=== PATIENT | male | born 1935 ===

== ENCOUNTER 2018-12-02 10:37 | Inpatient (IN) | payer MEDICARE, OTHER ==
[~2018-12-02] VITALS: Ht 182.9 cm; Wt 90.2 kg
[~2018-12-02 10:37] MED LIST: HYDCHL12.5 PO; IBUP100S; Norco 5-325 Ta1 EACH PO; TAMS.4ER PO
[2018-12-02] MEDS ORDERED: FURO40 PO (10:57)
[2018-12-02] MEDS ORDERED: POTCHL10ER PO (10:57)
[2018-12-02 11:14] LABS: BASOPHILS ABSOLUTE AUTO 0.04 K/mm3 (0.00-0.23); BASOPHILS PERCENT AUTO 1 % (0-2); EOSINOPHILS PERCENT AUTO 5 % (0-6); Hematocrit 37.2 % (37.0-53.0); Hemoglobin 13.2 g/dL (13.5-17.5); IMMATURE GRAN ABSOLUTE AUTO 0.03 K/mm3 (0.00-0.10); IMMATURE GRAN PERCENT AUTO 1 % (0-1); LYMPHOCYTES ABSOLUTE AUTO 0.36 K/mm3 (0.84-5.20); LYMPHOCYTES PERCENT AUTO 8 % (21-46); MONOCYTES ABSOLUTE AUTO 0.55 K/mm3 (0.16-1.47); MONOCYTES PERCENT AUTO 13 % (4-13); Mean Corpuscular HGB 35.6 pg (26.0-34.0); Mean Corpuscular HGB Conc 35.5 g/dL (31.5-36.5); Mean Corpuscular Volume 100 fL (80-100); Mean Platelet Volume 10.4 fL (9.1-12.4); NEUTROPHILS ABSOLUTE AUTO 3.13 K/mm3 (1.96-9.15); NEUTROPHILS PERCENT AUTO 73 % (41-73); Platelet Count 170 K/mm3 (150-400); RDW Coefficient Variation 16.5 % (11.7-14.2); RDW Standard Deviation 60.9 fL (35.1-46.3); Red Blood Cell Count 3.71 M/mm3 (4.30-5.90); White Blood Cell Count 4.31 K/mm3 (4.00-11.30)
[2018-12-02 11:39] LABS: International Normalized Ratio 1.27; Prothrombin Time Results 13.2 Sec (9.7-11.5)
[2018-12-02 11:45] LABS: Alanine Aminotransfer (ALT/SGP 166 U/L (12-78); Albumin, Blood 2.6 g/dL (3.4-5.0); Albumin/Globulin Ratio 0.9 (0.8-1.8); Alk Phos 558 U/L (50-136); Anion Gap 9 mmol/L (6-16); Aspartate Aminotrans (AST/SGOT 286 U/L (12-37); Blood Urea Nitrogen 11 mg/dL (8-24); Bun/Creatinine Ratio 16.2 (12.0-20.0); CO2, Blood 29 mmol/L (21-32); Calcium, Blood 8.4 mg/dL (8.5-10.1); Chloride, Blood 99 mmol/L (98-108); Creatinine, Blood 0.68 mg/dL (0.60-1.20); Globulin, Blood 2.8 g/dL (2.2-4.0); Glomerular Filtration Rate >60 (60-); Glucose, Blood 136 mg/dL (70-99); Potassium, Blood 2.9 mmol/L (3.5-5.5); Sodium, Blood 137 mmol/L (136-145); Total Protein, Blood 5.4 g/dL (6.4-8.2)
[2018-12-02 12:01] LABS: Bilirubin, Total 25.5 mg/dL (0.1-1.0)
--- NOTE | 2018-12-02 15:30 | NUR ---
Initial palliative care consult: Sudheer is efren 83 year old with a history of prostate problems and leg edema. He reports that he has been healthy all his life until the last couple of years. He is accompanied by his and daughter today. He lives with his of 66 years in [place]. She is needing to have a hip replaced. Their daughter lives in [place] and they have a son Mario in [place]. Sudheer states he saw his PCP about a month ago and had lab work done. He reports he was supposed to go see a doctor at the cancer center, however he never rec'd a call for an appointment. He reports that he has had abd pain for the past several months. He reports a change in BMs (up to 4/day) which is unusal for him. He reports his BMs are restaurant manager in [place]. He is very jaundiced and c/o itching. He has swelling in bilat lower extremities. He reports a 40 pound wt loss over the past year and he also reports a poor appetite recently. He states he knew something was wrong and was putting off coming into the hospital for fear of bad news. He reports dark colored urine. He c/o being extrememly weak which has been rapidly progressing recently. During the initial visit, Dr. Morse returned to give CT results which are highly suspicious for a pancreatic tumor which is blocking ducts. Dr. Morse told pt and family that he had contacted the radiologist and Dr. Ferris who pt was referred to by his PCP. He also stated he would speak with Dr. Burrows about a possible drain placement. Pt and family are overwhelmed by news of his tumor. Pt stated he knew something was wrong, his dtr, Jennifer, is very tearful and upset. Asked pt to think about what he would like to do once he has spoken to all the doctors and has options for care. Discussed possibilty of treatment vs. hospice care. Pt stated he was leaning towards comfort care which upset his dtr. She said "No way will hospice be involved." She reports her grandparents under hospice care. "They were not given IV fluids and they starved to ." Attempted to calm her fears and gently explained the goal of hospice care is to improve qualify of life when a cure isn't an option. Discussed pancreatic cancer and how that defers from breast cancer (pt's dtr Jennifer is a breast cancer survivor.) Sudheer stated if he knew he would be cured of the cancer he would consider doing treatment. He also stated that he knew he could still of cancer even with treatment. He is very much interested in managing his symptoms and relieving his pain and itching. Much emotional support given to pt and family. Will allow pt and family some time as they are reacting to the news of a new cancer diagnosis. Explained to them that the reactions they are having of fear, denial, anger are all normal. Sudheer states he wants to talk to his family and then they will decide what to do for a plan going forward. Explained to Sudheer and family the goal for PC. PC will remain available for symptom management and helping pt and family to develop a plan of care. Did not address home needs or code status at this time as pt and family are beginning to adsorb this new diagnosis.
--- NOTE | 2018-12-02 19:00 | NUR ---
JUST ARRIVED TO RM 362 FROM ER. ORIENTED TO ROOM.
--- NOTE | 2018-12-02 20:05 | NUR ---
1930 REPORT RECEIVED. PT NOT IN ROOM AND OFF UNIT WITH FAMILY PER REPORT FROM OFF GOING RN.
--- NOTE | 2018-12-03 04:05 | NUR ---
SHIFT SUMMARY: 83 Y/O MALE RESTED COMFORTABLY ALL EVENING IN BED. PT C/O BACK PAIN AND MEDICATED NORCO X 1 WITH RELIEF FELT. PT HAS PAST HISTORY CHRONIC BACK DISCOMFORT. PT ALERT AND ORIENTED X 3, ABLE TO FOLLOW ALL SIMPLE VERBAL COMMANDS. PTS TELEMETRY REFLECTS A-FIB WITH HEART RATE 76. PTS AND DAUGHTER AT SIDE BEGINNING OF SHIFT. PT DENIES ITCHING. PT DENIES NAUSEA. PTS BED ALARM APPLIED, BED LOW POSITION, CALL LIGHT AT SIDE.
[2018-12-03 05:10] LABS: BASOPHILS ABSOLUTE AUTO 0.05 K/mm3 (0.00-0.23); BASOPHILS PERCENT AUTO 1 % (0-2); EOSINOPHILS ABSOLUTE AUTO 0.29 K/mm3 (0.00-0.68); EOSINOPHILS PERCENT AUTO 6 % (0-6); Hematocrit 36.1 % (37.0-53.0); Hemoglobin 12.7 g/dL (13.5-17.5); IMMATURE GRAN ABSOLUTE AUTO 0.03 K/mm3 (0.00-0.10); IMMATURE GRAN PERCENT AUTO 1 % (0-1); LYMPHOCYTES ABSOLUTE AUTO 0.56 K/mm3 (0.84-5.20); LYMPHOCYTES PERCENT AUTO 12 % (21-46); MONOCYTES PERCENT AUTO 15 % (4-13); Mean Corpuscular HGB 35.1 pg (26.0-34.0); Mean Corpuscular HGB Conc 35.2 g/dL (31.5-36.5); Mean Corpuscular Volume 100 fL (80-100); Mean Platelet Volume 10.3 fL (9.1-12.4); NEUTROPHILS ABSOLUTE AUTO 3.07 K/mm3 (1.96-9.15); NEUTROPHILS PERCENT AUTO 65 % (41-73); Platelet Count 195 K/mm3 (150-400); RDW Coefficient Variation 16.8 % (11.7-14.2); RDW Standard Deviation 61.5 fL (35.1-46.3); Red Blood Cell Count 3.62 M/mm3 (4.30-5.90)
[2018-12-03 05:24] LABS: International Normalized Ratio 1.23; Prothrombin Time Results 12.8 Sec (9.7-11.5)
[2018-12-03 05:42] LABS: Alanine Aminotransfer (ALT/SGP 199 U/L (12-78); Albumin, Blood 2.8 g/dL (3.4-5.0); Alk Phos 597 U/L (50-136); Anion Gap 7 mmol/L (6-16); Aspartate Aminotrans (AST/SGOT 373 U/L (12-37); Blood Urea Nitrogen 11 mg/dL (8-24); Bun/Creatinine Ratio 14.8 (12.0-20.0); CO2, Blood 31 mmol/L (21-32); Calcium, Blood 8.4 mg/dL (8.5-10.1); Chloride, Blood 97 mmol/L (98-108); Creatinine, Blood 0.74 mg/dL (0.60-1.20); Globulin, Blood 2.9 g/dL (2.2-4.0); Glomerular Filtration Rate >60 (60-); Glucose, Blood 108 mg/dL (70-99); Potassium, Blood 3.1 mmol/L (3.5-5.5); Sodium, Blood 135 mmol/L (136-145); Total Protein, Blood 5.7 g/dL (6.4-8.2)
[2018-12-03 05:53] LABS: Bilirubin, Total 27.1 mg/dL (0.1-1.0)
--- NOTE | 2018-12-03 11:30 | NUR ---
Pal care visit note: Introduced myself to pt. He is very jaundiced, alert and oriented and receptive to visit. I explained to him that I was following up after his Pal Care visit in the ER yesterday with another PC RN. He reports his pain was an 8-9/10 yesterday in the ER. He states for two years he has taken tylonol with hydrocodone tid for low back pain. He believes he was given a pain pill just a little bid ago and reports his pain at a 7-8/10 at this time. Discussed with pt and RN that if pain was not to pt's stated tolerable level in the next 30-40 minutes, I recommended use of IV fentanyl as ordered per eMAR. Pt also reports nausea and stomach/abd cramping with eating. He is experiencing the urge to void or have a BM almost all the time due to pressure from fluid in his abdomen. He feels "tight all over". He is eating only small amounts. I reviewed his wishes re: code status and pt confirmed he does not want to have CPR or intubation and wants to be allowed to naturally with comfort measures taken if he is in respiratory failure or has a cardiac event. He is in favor of having a biliary duct stent placed if it is "all inside" to drain but he does not want an exterior drain or tube of any sort. He's discussed this with his drs and that his pancreatic mass is "inoperable". He has asked "how much time do I have?" and been told by drs, "that is an unknown". Pt appears calm and appropriately somber. He states a number of times, "I just want to be comfortable for whatever time I have left". He verbalizes understanding of conversations & the information re: his diagnosis and prognosis provided to him by his drs yesterday. "I've kicked the can down the road as far as I can kick it.". He reports knowing he was gravely ill due to continued weight loss and abdominal discomfort for some time. He changed the subject to his and the hip replacement she needs. We spent some time reminiscing about his life, meeting his nearly 68 years ago, for 66 years since the summer between her pete and senior year of high school. They have lived in [place] and in the same home for many decades. They have a daughter in [place] and a son in the [place] area. I case conferenced with pt's RN and Tracy from [facility] re: my visit and planned to visit again later today to assess for comfort again and meet with pt's family when they visit if desired. Pt states he would like me to return today.
--- NOTE | 2018-12-03 16:04 | NUR ---
Patient is lying in bed and alert when I enter the room. Patient admits to struggling with his recent diagnosis. Patient states that he is the dumbest 83 year old about tenriism but he never gave it much thought until now. As I ask patient questions the family jumped in the conversation a few times and when they did it appeared to this abstract writer that this irritated the patient. I answered the patient's questions and attempted to bring a degree of peace to the patient about the afterlife. Patient asked me to come back to continue the conversation tomorrow. I told him I would make every effort to make that happen. I continue to be available to patient and family.
--- NOTE | 2018-12-03 18:50 | NUR ---
SHIFT SUMMARY PANCREATIC CA. OX3 SWINOMISH, UP TO BATHROOM 1ASSISTMorris WHEELER. NPO AFTER MIDNIGHT FOR PALLIATIVE PANCREATIC STENT PLACEMENT IN A.M. CONSULT COMPLETED THIS P.M. WITH DR. SURESH. C/O ABDOMINAL AND LOWER BACK PAIN ORDERED MEDS EFFECTIVE. AWAITING HOSPICE CONSULT.
--- NOTE | 2018-12-04 01:44 | NUR ---
PT C/O ZERO RELIEF FROM VISTARIL 25MG PO GIVEN AT 0015 FOR CHRONIC ITCHING TO ENTIRE BODY. . DR ALFRED ADVISED WITH ORDERS BENADRYL 25MG IVP X1.
[2018-12-04 05:01] LABS: BASOPHILS ABSOLUTE AUTO 0.04 K/mm3 (0.00-0.23); BASOPHILS PERCENT AUTO 1 % (0-2); EOSINOPHILS ABSOLUTE AUTO 0.42 K/mm3 (0.00-0.68); EOSINOPHILS PERCENT AUTO 9 % (0-6); Hematocrit 33.3 % (37.0-53.0); Hemoglobin 11.7 g/dL (13.5-17.5); IMMATURE GRAN ABSOLUTE AUTO 0.04 K/mm3 (0.00-0.10); IMMATURE GRAN PERCENT AUTO 1 % (0-1); LYMPHOCYTES ABSOLUTE AUTO 0.49 K/mm3 (0.84-5.20); LYMPHOCYTES PERCENT AUTO 11 % (21-46); MONOCYTES ABSOLUTE AUTO 0.73 K/mm3 (0.16-1.47); MONOCYTES PERCENT AUTO 16 % (4-13); Mean Corpuscular HGB 34.7 pg (26.0-34.0); Mean Corpuscular HGB Conc 35.1 g/dL (31.5-36.5); Mean Corpuscular Volume 99 fL (80-100); Mean Platelet Volume 10.3 fL (9.1-12.4); NEUTROPHILS ABSOLUTE AUTO 2.83 K/mm3 (1.96-9.15); NEUTROPHILS PERCENT AUTO 62 % (41-73); Platelet Count 168 K/mm3 (150-400); RDW Coefficient Variation 16.8 % (11.7-14.2); RDW Standard Deviation 60.7 fL (35.1-46.3); Red Blood Cell Count 3.37 M/mm3 (4.30-5.90); White Blood Cell Count 4.55 K/mm3 (4.00-11.30)
[2018-12-04 05:16] LABS: International Normalized Ratio 1.29; Prothrombin Time Results 13.4 Sec (9.7-11.5)
[2018-12-04 05:33] LABS: Alanine Aminotransfer (ALT/SGP 173 U/L (12-78); Albumin, Blood 2.4 g/dL (3.4-5.0); Alk Phos 523 U/L (50-136); Anion Gap 9 mmol/L (6-16); Aspartate Aminotrans (AST/SGOT 288 U/L (12-37); Blood Urea Nitrogen 15 mg/dL (8-24); Bun/Creatinine Ratio 18.7 (12.0-20.0); CO2, Blood 30 mmol/L (21-32); Calcium, Blood 7.9 mg/dL (8.5-10.1); Chloride, Blood 97 mmol/L (98-108); Globulin, Blood 2.3 g/dL (2.2-4.0); Glomerular Filtration Rate >60 (60-); Glucose, Blood 95 mg/dL (70-99); Potassium, Blood 3.2 mmol/L (3.5-5.5); Sodium, Blood 136 mmol/L (136-145); Total Protein, Blood 4.7 g/dL (6.4-8.2)
[2018-12-04 05:55] LABS: Bilirubin, Total 25.4 mg/dL (0.1-1.0)
--- NOTE | 2018-12-04 08:07 | NUR ---
SHIFT SUMMARY: 83 Y/O MALE HAD RESTLESS NIGHT WITH ONGOING PAIN AND ITCHING. THIS NURSE CONTACTED MD STOCK PREPARER AND PATIENT WAS GIVEN BENADRYL 25MG IVP AT 0210 WHICH RESOLVED ITCHING. PT NPO AFTER MIDNIGHT FOR POSSIBLE BILE DUCT STENT PLACEMENT. DR SURESH WAS AT BEDSIDE AT BEGINNING OF SHIFT AND EXPLAINED PROGNOSIS AND RECOMMENDED HOSPICE WITH PATIENTS , SON AND DAUGHTER AT SIDE. PTS SKIN VERY JAUNDICED. PTS VERY COOPERATIVE AND POLITE. PTS BED ALARM APPLIED, BED LOW POSITION, CALL LIGHT AT SIDE.
--- NOTE | 2018-12-04 15:55 | NUR ---
Met with family for plan of care. Review of stress. pt mother is struggling to let people in her home. He son lives there who is in recovery. She feels her house is old and cluttered and her son lives with them she is embarrassed. Her other children are trying to set things up for both of them pt understands his very limited time and their mother is failing also. reviewed need to hav a will and poa. theraputic time with patient daughter who just lost her exhusband and now is facing her fathers passing she is struggling. review grief and care startegies.
--- NOTE | 2018-12-04 19:48 | NUR ---
SHIFT SUMMARY: PT A&O; CALM AND COOPERATIVE WITH CARE. MEDICATED FOR PAIN PER EMAR. SURGICAL PROCEDURE TODAY; INTERNAL & EXTERNAL BILIARY DRAINS PLACED (DR GUEVARA); DRAIN BAG IN PLACE-BLOODY DRAINAGE; MEDICATED FOR PAIN & NAUSEA POST-OP. REPORT GIVEN TO ONCOMING RN.
--- NOTE | 2018-12-05 05:00 | NUR ---
SHIFT SUMMARY: 83 Y/O MALE RESTED COMFORTABLY ALL SHIFT WITH NO C/O PAIN, NAUSEA OR ITCHING. PTS DRAIN CONTINUOUS HAD SEROSANGUINUOUS DRAINAGE NOTED (SITE WELL APPROXIMATED WITH DRESSING DRY AND INTACT). PT IS ALERT AND ORIENTED X3, ABLE TO FOLLOW ALL SIMPLE VERBAL COMMANDS. PTS BED ALARM APPLIED, BED LOW POSITION, CALL LIGHT AT SIDE.
[2018-12-05 05:22] LABS: BASOPHILS ABSOLUTE AUTO 0.02 K/mm3 (0.00-0.23); BASOPHILS PERCENT AUTO 0 % (0-2); EOSINOPHILS ABSOLUTE AUTO 0.01 K/mm3 (0.00-0.68); EOSINOPHILS PERCENT AUTO 0 % (0-6); Hemoglobin 12.6 g/dL (13.5-17.5); IMMATURE GRAN ABSOLUTE AUTO 0.07 K/mm3 (0.00-0.10); IMMATURE GRAN PERCENT AUTO 1 % (0-1); LYMPHOCYTES ABSOLUTE AUTO 0.35 K/mm3 (0.84-5.20); LYMPHOCYTES PERCENT AUTO 4 % (21-46); MONOCYTES ABSOLUTE AUTO 0.85 K/mm3 (0.16-1.47); MONOCYTES PERCENT AUTO 10 % (4-13); Mean Corpuscular HGB 34.2 pg (26.0-34.0); Mean Corpuscular Volume 98 fL (80-100); Mean Platelet Volume 10.5 fL (9.1-12.4); NEUTROPHILS ABSOLUTE AUTO 7.25 K/mm3 (1.96-9.15); NEUTROPHILS PERCENT AUTO 85 % (41-73); Platelet Count 207 K/mm3 (150-400); RDW Coefficient Variation 16.9 % (11.7-14.2); RDW Standard Deviation 61.4 fL (35.1-46.3); Red Blood Cell Count 3.68 M/mm3 (4.30-5.90); White Blood Cell Count 8.55 K/mm3 (4.00-11.30)
[2018-12-05 05:43] LABS: Alanine Aminotransfer (ALT/SGP 193 U/L (12-78); Albumin, Blood 2.5 g/dL (3.4-5.0); Alk Phos 624 U/L (50-136); Anion Gap 10 mmol/L (6-16); Aspartate Aminotrans (AST/SGOT 428 U/L (12-37); Blood Urea Nitrogen 22 mg/dL (8-24); Bun/Creatinine Ratio 27.6 (12.0-20.0); CO2, Blood 27 mmol/L (21-32); Calcium, Blood 8.3 mg/dL (8.5-10.1); Chloride, Blood 96 mmol/L (98-108); Globulin, Blood 2.6 g/dL (2.2-4.0); Glomerular Filtration Rate >60 (60-); Glucose, Blood 103 mg/dL (70-99); Potassium, Blood 3.9 mmol/L (3.5-5.5); Sodium, Blood 133 mmol/L (136-145); Total Protein, Blood 5.1 g/dL (6.4-8.2)
[2018-12-05 06:25] LABS: Bilirubin, Total 28.7 mg/dL (0.1-1.0)
--- NOTE | 2018-12-05 12:19 | NUR ---
Patient is lying in bed and alert. Patient talks at length about his family, about dying, about politics and about advent. Patient is still troubled about the dying process but says he has accepted it. After quit some time, patient staes that he loves me and asks if I could pray for him. I listened empathically, provided emotional support and prayer. Patient thanks me for the time and care and asks if I could return again.
--- NOTE | 2018-12-05 17:30 | NUR ---
EXTERNAL BILIARY DRAIN CAPPED.
--- NOTE | 2018-12-05 18:28 | NUR ---
SHIFT SUMMARY: NO ACUTE CHANGES TO REPORT THIS SHIFT. PT A&O; CALM AND COOPERATIVE WITH CARE; OCC ANXIETY R/T MEDICAL DIAGNOSIS. MEDICATED FOR PAIN PER EMAR. TELE IN PLACE; A-IB @ 88 PER CREAM RIPENER. BILIARY DRAIN PLACED 12/04; EXTERNAL DRAIN REMOVED THIS SHIFT-INTERNAL DRAIN OPERATING; PATIENT JAUNDICED T/O. PALLIATIVE CARE WORKING WITH PATIENT & FAMILY; EXPECTED D/C HOME WITH HOSPICE AFTER BILIARY SHUNT PLACED ~09 DECEMBER. WCTM.
--- NOTE | 2018-12-06 04:15 | NUR ---
SHIFT SUMMARY: 83 Y/O MALE RESTED COMFORTABLY ALL NIGHT. PT INITIALLY HAD EPISODE OF ITCHING OVER ENTIRE BODY WITH GENERALIZED PAIN RATED 6/10 WITH VISTARIL 25MG PO GIVEN FOR ITCHING AND ROXICODONE 5MG PO GIVEN FOR PAIN WITH RELIEF FELT. PT ALERT AND ORIENTED X 3. PTS RIGHT FLANK DRESSING COVERING DRAIN INSERTION SITE WELL APPROXIMATED AND INTACT. PT ABLE TO TRANSFER AND AMBULATED TO BATHROOM AND BACK WITHOUT ISSUE. PTS VOICED LAST PM OF REGRET NOT SPEAKING WITH BROTHER PAST 50 YEARS BACK IN [place] WITH THIS NURSE PROVIDING LISTENING EAR. PTS BED ALARM APPLIED, BED LOW POSITION, CALL LIGHT AT SIDE.
[2018-12-06 05:38] LABS: Alanine Aminotransfer (ALT/SGP 174 U/L (12-78); Albumin, Blood 2.2 g/dL (3.4-5.0); Alk Phos 593 U/L (50-136); Anion Gap 8 mmol/L (6-16); Aspartate Aminotrans (AST/SGOT 406 U/L (12-37); Blood Urea Nitrogen 25 mg/dL (8-24); Bun/Creatinine Ratio 24.5 (12.0-20.0); CO2, Blood 29 mmol/L (21-32); Calcium, Blood 7.8 mg/dL (8.5-10.1); Chloride, Blood 97 mmol/L (98-108); Creatinine, Blood 1.02 mg/dL (0.60-1.20); Globulin, Blood 2.2 g/dL (2.2-4.0); Glomerular Filtration Rate >60 (60-); Glucose, Blood 103 mg/dL (70-99); Potassium, Blood 3.3 mmol/L (3.5-5.5); Sodium, Blood 134 mmol/L (136-145); Total Protein, Blood 4.4 g/dL (6.4-8.2)
[2018-12-06 05:58] LABS: Bilirubin, Total 25.4 mg/dL (0.1-1.0)
--- NOTE | 2018-12-06 15:40 | NUR ---
HE HAS ABOUT 6 VISITORS IN THE ROOM RIGHT NOW. HE LOOKS COMFORTABLE BUT SAYS HIS PAIN IS A 9. WILL KEEP UP THE OXYCODONE. BENADRYL ORDER RECEIVED FOR HIS ITHCHING. HE SAYS IT HELPS MORE THAN THE ATARAX. TELE AFIB. HE REMAINS VERY JAUNDICED. HIS R-SIDED DRAIN IS CAPPED. APPETITE FAIR. MORE PAIN OCCURS AFTER EATING.
--- NOTE | 2018-12-06 18:34 | NUR ---
HE ONLY HAS 2 VISITORS NOW BUT HAS HAD MUCH 8 AT A TIME TODAY. SINCE HIS CANCER PROGNOSIS IS POOR, THEY ARE EVEN TRYING TO DO SOME LEGAL WORK. THE PATIENT IS ABLE TO PARTICIPATE FULLY IN ALL OF IT. HIS MAIN COMPLAINT IS ITCHING. HIS 2ND COMPLAINT IS ABD PAIN. THE BENADRYL IS MOST EFFECTIVE FOR THE ITCHING BUT ATARAX GIVEN IN BETWEEN BECAUSE THE FREQUENCY IS Q8 HRS. URINE DARK AND STOOL LIGHT. DRAIN CAPPED.
--- NOTE | 2018-12-07 04:01 | NUR ---
SHIFT SUMMARY: 83 Y/O MALE HAD WELL RESTED NIGHT AFTER RECEIVING MELATONIN 3MG PO AND ROXICODONE 5MG PO. PT HAD BRIEF BOUT ITCHING WITH VISTARIL 25MG PO GIVEN 0330 WITH RELIEF FELT. PTS RIGHT FLANK BILI TUBE SITE DRY AND INTACT. PT DENIES NAUSEA. PT ABLE TO AMBULATE TO BATHROOM VIA WALKER X 1 STANDBY ASSIST WITH GAIT SLOW AND STEADY. PT VOIDING WITHOUT ISSUE. PTS ENTIRE BODY IS JAUNDICED. PTS BED ALARM APPLIED, BED LOW POSITION, CALL LIGHT AT SIDE. PTS FAMILY WAS AT BEDSIDE AT BEGINNING OF SHIFT.
[2018-12-07 05:04] LABS: Alanine Aminotransfer (ALT/SGP 131 U/L (12-78); Albumin, Blood 2.3 g/dL (3.4-5.0); Alk Phos 554 U/L (50-136); Anion Gap 5 mmol/L (6-16); Aspartate Aminotrans (AST/SGOT 233 U/L (12-37); Blood Urea Nitrogen 27 mg/dL (8-24); Bun/Creatinine Ratio 24.3 (12.0-20.0); CO2, Blood 32 mmol/L (21-32); Chloride, Blood 97 mmol/L (98-108); Creatinine, Blood 1.11 mg/dL (0.60-1.20); Globulin, Blood 2.3 g/dL (2.2-4.0); Glomerular Filtration Rate >60 (60-); Glucose, Blood 104 mg/dL (70-99); Potassium, Blood 3.6 mmol/L (3.5-5.5); Sodium, Blood 134 mmol/L (136-145); Total Protein, Blood 4.6 g/dL (6.4-8.2)
--- NOTE | 2018-12-07 11:23 | NUR ---
Pt visit this AM. Pt resting in bed with his eyes closed. He awakens easily with soft voice. Pt appears slighly lethargic. Pt denies pain at this time. Pt appears comfortable and closes his eyes. Spoke with Pt's bedside nurse Cece and she reports adding Benadryl has helped with managing Pt's comfort. Cece reports no concerns at this time. Palliative Care will remain available.
--- NOTE | 2018-12-07 16:13 | NUR ---
Received call with family request for palliative care visit. Pt resting in bed and reports his pain is managed and itching is also managed. Family inquires how Pt will be transported home. Explained to family Pt will be transported home via wheel chair van or gurney. Family requests gurney due to Pt's increased weekness. Family also requests that hospital bed, pump and pad, BSC with splash gaurd, and BST. Family also inquires if Pt's procedure isn't performed until later in the day if Pt still will be discharged on Saturday. Suggested that if procedure is too late in the day Pt may end up staying another day. Instructed family the plan is for hospice to make initial visit on same day of discharge. Family would also like social service to recommend an estate attourney. Offered documents for last will and testimant with Pt and family agreeable. No other concerns reported at this time. Placed social service referral for assistance with family to obtain estate attourney. Called and left message with care managerment coordinator Mellissa of medical equipment request and delivery before Pt's arrival home. Palliative Care will remain available.
--- NOTE | 2018-12-07 17:32 | NUR ---
PT IS ALERT AND ORIENTED. WAS GIVEN PRN DIPHENALHYDRAMINE FOR ITCHING WHICH PROVIDED RELIEF. PT TAKES PILLS ALL TOGETHER AND WHOLE. HE WAS COOPERATIVE WITH THE ASSESSMENT AND PLEASENT DURING INTERACTIONS. PT DID COMPLAIN OF BACK PAIN AND WAS GIVEN A FOAM EGGCRATE TO RELIEVE PRESSURE OFF THE BACK. PT IS A 1 PERSON ASSIST AND USES A WALKER. FAMILY WAS IN AND OUT DURING THE DAY WITH THE PATIENT. BARRIER CREAM WAS APPLIED TO THE BUTTOCKS THE AREA WAS STARTING TO TURN RED. THE PT WILL NEED ASSISTANCE WITH WIPING AFTER USING THE RESTROOM HE HAS A DIFFICULT TIME DOING SO. CALL LIGHT WITHIN REACH.
--- NOTE | 2018-12-08 05:37 | NUR ---
PT SAT UP CHAIR FOR 30 MINUTES THIS AM AFTER WALKING FROM BATHROOM. PT TOLERATED ACTIVITY WELL AND WAS VERY GRACIOUS WITH STAFF.
[2018-12-08 05:52] LABS: Alanine Aminotransfer (ALT/SGP 106 U/L (12-78); Albumin, Blood 2.1 g/dL (3.4-5.0); Albumin/Globulin Ratio 0.9 (0.8-1.8); Alk Phos 506 U/L (50-136); Anion Gap 6 mmol/L (6-16); Aspartate Aminotrans (AST/SGOT 154 U/L (12-37); Blood Urea Nitrogen 24 mg/dL (8-24); Bun/Creatinine Ratio 25.6 (12.0-20.0); CO2, Blood 29 mmol/L (21-32); Calcium, Blood 7.8 mg/dL (8.5-10.1); Chloride, Blood 99 mmol/L (98-108); Creatinine, Blood 0.94 mg/dL (0.60-1.20); Globulin, Blood 2.3 g/dL (2.2-4.0); Glomerular Filtration Rate >60 (60-); Glucose, Blood 107 mg/dL (70-99); Potassium, Blood 3.2 mmol/L (3.5-5.5); Sodium, Blood 134 mmol/L (136-145); Total Protein, Blood 4.4 g/dL (6.4-8.2)
[2018-12-08 05:59] LABS: Bilirubin, Total 23.2 mg/dL (0.1-1.0)
--- NOTE | 2018-12-08 06:30 | NUR ---
SHIFT SUMMARY: 83 Y/O MALE RESTED COMFORTABLY ALL NIGHT AFTER RECEIVING MELATONIN 3MG, BENADRYL 25MG AND ROXICODONE 25MG PO AT BEDTIME. PT FELT RELIEF FROM ITCHING AND PAIN. PT ALERT AND ORIENTED X 3, ABLE TRANSFER AND AMBULATED TO BATHROOM AND BACK VIA WALKER. PTS RIGHT LEG CELLULITIS IS RESOLVED. PTS RIGHT UPPER CHEST BILI TUBE IS CAPPED WITH NO DRAINAGE AT INSERTION SITE NOTED. PT SCHEDULED TO HAVE STENT PLACED ON 12/09/18 AND THEN POSSIBLE DISCHARGE HOME TO HOSPICE. PT AND FAMILY ARE AWARE OF RECENT DIAGNOSIS AND ARE VERY SUPPORTIVE. PTS BED ALARM APPLIED ALL NIGHT, BED LOW POSITION, CALL LIGHT AT SIDE.
--- NOTE | 2018-12-08 09:06 | NUR ---
AM NOTE: REPORT FROM SOFI HUMPHREY. ASSUMED CARE AT APPROX. 0720. PT SLEEPING SOUNDLY IN ROOM. REQUESTS TO BE LEFT TO REST AT THIS TIME. WILL GIVE MORNING MEDS WHEN PT WAKES UP. BREAKFAST AT BEDSIDE. VSS. CALL LIGHT IN REACH.
--- NOTE | 2018-12-08 09:34 | NUR ---
REPORT GIVEN TO SOFI MATHUR ASSUMING CARE AT THIS TIME.
--- NOTE | 2018-12-08 15:15 | NUR ---
ASSISTED WITH PERICARE. APPLIED BARRIER CREAM TO BACKSIDE.
--- NOTE | 2018-12-08 18:32 | NUR ---
SHIFT SUMMARY PT HAS BEEN SLEEPING A LOT OF THE SHIFT. WHEN PT AWAKE, HE REPORTS EXTREME ITCHING THROUGH OUT BODY. MEDICATION GIVEN FOR ITCHING PER EMAR. MEDICATED FOR PAIN X1. PT TO BE NPO AFTER MIDNIGHT TONIGHT FOR PROCEDURE TOMORROW. NO ACUTE CHANGES THIS SHIFT. PT CALLS APPROPRIATELY. CALL LIGHT IN REACH. WILL CONTINUE TO MONITOR AND REPORT TO ONCOMING RN.
--- NOTE | 2018-12-09 04:01 | NUR ---
SHIFT SUMMARY: 83 Y/O MALE RESTED COMFORTABLY BED ALL NIGHT WITH NO C/O ITCHING OR PAIN. PTS ENTIRE BODY STILL JAUNDICED. PTS RIGHT UPPER CHEST DRESSING DRY AND INTACT. PT HAPPY AND COOPERATIVE, ABLE TO FOLLOW ALL SIMPLE VERBAL COMMANDS. PTS MADE NPO AFTER MIDNIGHT FOR POSSILBE BILE STENT PLACEMENT TODAY. PTS FAMILY IS AWARE OF PENDING PROCEDURE (NO SET TIME YET). PTS BED ALARM APPLIED, BED LOW POSITION, CALL LIGHT AT SIDE.
--- NOTE | 2018-12-09 05:35 | NUR ---
PT C/O BACK PAIN RATED 6 AND GENERALIZED BODY ITCHING RATED 6; PT TOOK BENADRYL 25MG AND ROXICODONE 5MG PO WITH SMALL SIP WATER VIA THIS NURSE.
--- NOTE | 2018-12-09 07:05 | NUR ---
0645 PT RESTING COMFORTABLY IN BED WITH NO C/O FURTHER ITCHING OR PAIN AT THIS MOMENT.
--- NOTE | 2018-12-09 12:22 | NUR ---
Spiritual care visit conducted. Patient immediately welcomes me into the room and asks me to stand where he can read my lips because his hearing is poor. Patient holds my hand for the 45 minute visit. Patient shares about his will, about wanting to have peace in and about his life growing up. Patient gets very tearful at times and continues to ask me questions about krissy and the afterlife. Patient has a deep level of integrity and caution as he approaches this topic. I provide pastoral automobile club travel counselor, spiritual guidance, emotional support and prayer. Patient responds well and thanks me for the visit and asks if I could come visit him at home when he is discharged. Patient is then taken for his procedure.
--- NOTE | 2018-12-09 15:25 | NUR ---
PT EXPERIENCINF SEVERE PAIN AFTER STENT PROCEDURE. THIS NS HAD RICHARD RN CONTACT PROVIDER AND PROVIDER INCREASED PAIN MEDICATION. SON IS AT BEDSIDE. REASSURED SON THAT NEW ORDER FOR PAIN MED WOULD BE ADMINISTERED SOON PHARMACY VERIFIED,
--- NOTE | 2018-12-09 16:46 | NUR ---
NOTIFIED JUAN LEUNG OF PATIENT PAIN AND ANXIOUSNESS. JUAN AND DR. PISANO PROVIDED RECOMMENDATIONS TO TRANSFER TO ROXANOL AND ATIVAN. NORRIS PHONED ORDERS FOR THIS MEDICATIONS.
--- NOTE | 2018-12-09 17:56 | NUR ---
Case confernce with RN earlier re: recommendations for analgesic and s/s management due to pt's out of control pain after returning from procedure this afternoon. She called Dr and orders obtained for Roxanol and ativan. Assessed pt at that time and he reported severe pain with inhaling. Discussed new orders with RN. Spent time speaking with regarding her concerns. Other family members out of room to eat dinner. Warm blanket brought to and Lead Burner contacted for a visit also. While Lead Burner speaking with s/s assessment completed. Pt woke to conversation but kept eyes closed. He was lying as still as he could, supine in bed to minimize pain. Some sob noted but seems related to breath holding due to the pain. RN administered Roxanol and when I returned to meet with family an hour or so later he appeared much more comfortable and was sleeping. I was in the room for more than 20 minutes and did not observe any nonverbal indicators of pain or distress at that time. Family allowed to voice their concerns and questions. Time spent setting realistic expectations and discussing primary goal of comfort. Instructed them on nonverbal indicators of pain to note and report when pt asleep or unable to communicate needs. Edward asked to speak to me privately afterwards. She is still grieving the of her ex- in June and has had multple losses, magnifying her distress with her father's EOL process. I allowed her to express those feelings and offered listening, support and a long hug with her permission. I encouraged counseling for grief and self care. FAmily present for todays visit are Pt's son, dil, edward, grandson and . Plan to follow up with all of them and pt in am for s/s assessment and support. FAmily appreciative of the visit and information. They are expressing more understanding of pt's current EOL care needs and wishes.
--- NOTE | 2018-12-09 18:43 | NUR ---
THIS NURSE ASSESSED PATIENT TO BE SLEEPING COMFORTABLY. FAMILY AT BEDSIDE. NO SIGNS OF DISCOMFORT. SALINE LOCKED PATIENT FROM FLUIDS GIVEN POST SURGERY.
--- NOTE | 2018-12-09 18:46 | NUR ---
SHIFT REPORT PT HAD A BILIARY STENT PLACE TODAY APPROX 1200. PT RETURNED FROM PROCEDURE AND BEGAN TO COMPLAIN OF SEVERE PN RATED AT A 12 OUT OF TEN. DID A VARIETY OF PHARMECEUTICAL PAIN INTERVENTIONS AND CONTACTED THE PHYSICIAN. ASHLEY GOT A ORDER FOR PO ROXINAL. PT IS EXPECTED TO BE DISCHARGED ON HOSPICE TOMORROW WITH FAMILY. PT WAS ABLE TO REST AFTER ADMIN OF ROXANOL. PT IS BEING DISCHARGED TO HOME FOR COMFORT CARE/HOSPICE TOMORROW MORNING. BED LEFT IN LOCKED AND LOW POSITION. REPORT GIVEN TO FRANK FARAH.
--- NOTE | 2018-12-09 18:49 | NUR ---
Initial Spiritual Care visit: Mr. Campbell slept while I met with his at bedside. Bessy is very concerned about taking Walker home with hospice, as she is quite frail herself. They have an adult son who lives with them who will help when needed. I provided Hospice services education to good effect. This is a non-restorationism family, but Bessy responded well to compassion and encouragement. I will remain available.
--- NOTE | 2018-12-10 05:37 | NUR ---
SHIFT SUMMARY PT SLEPT MUCH OF THE NIGHT, WAKING UP THIS AM TO VOID. IS ALERT AND ORIENTED, UP TO BATHROOM WITH AO1 AND FWW. PT DRESSING C/D/I ON RIGHT CHEST WALL. REQUESTING PAIN MEDICATION THIS AM, ROXANOL 10 MG GIVEN PO. NO ACUTE EVENTS OVER NIGHT. WILL CONTINUE TO MONITOR.
--- NOTE | 2018-12-10 07:00 | NUR ---
BEDSIDE REPORT WITH NOC RN. PT RESTING IN POSITION OF COMFORT.
--- NOTE | 2018-12-10 07:58 | NUR ---
ASSESSMENT CHARTED. PT C/O SOME PAIN TO RIGHT SIDE "FROM MY PROCEDUR". PT DRINKING WATER. ASSISTED PT SITTING UP IN BED. CALL LIGHT IN REACH. PT ALERT AND ORIENTED.
--- NOTE | 2018-12-10 08:35 | NUR ---
BREAKFAST TRAY PROVIDED. PT MEDS GIVEN PER EMAR. ASSISTE TO SITTING POSITION, BLINDS OPENED.
--- NOTE | 2018-12-10 09:10 | NUR ---
PALLIATIVE CARE AT BEDSIDE. PLAN TO POTENTIALLY DC PT HOME WITH HOME HEALTH/HOSPICE. HOME MED EQIUPMENT TO BE DELIVERED AROUND 11AM.
--- NOTE | 2018-12-10 09:35 | NUR ---
PT MEDICATED WITH ROXINOL PER EMAR FOR PAIN.
--- NOTE | 2018-12-10 09:37 | NUR ---
PAL CARE CLINICAL ASSESSMENT Pt is alert and oriented this am. Fully able to state his needs. He was trying to eat his breakfast but lost interest with reported poor appetite. He requested tomato juice, which was brought to him. PO meds sitting in cup on overbed table. Pt was angled in bed and looked uncomfortable in position. With Student nurses help, we repositioned him to his stated comfort. He had many nonverbal indicators, (ie grimacing, breath holding, crying out, deeply furrowed brow) of severe pain with repositioning and reports, "I'm hurting horribly bad" when asked to rate his pain on a scale of 0-10. He denies nausea, LEON or sore throat and localizes his pain to his RUQ abd and back. Pt is wearing attends. He has trace pitting edema of rishabh LE and palpable pedal pulses. Skin remains very jaundiced but s/s of jaundice improved per pt. Spent time listening and discussing pt's wishes. He reports receiving excellent care at the hospital and asked questions regarding home going and equipment he would need. Assured him that equipment would be set up before he got there and transportation would be arranged. He confirmed that he would prefer to at home and he feels comfortable with the idea of going home today. He states if his family and hospice are not able to manage his care at home he would be ok with dying in the hospital where he has been well cared for. He reports current pain rx doing well for his pain when he receives it. He reports his itching is much improved. Pt expresses much appreciation for all care here. Report of my visit given to RN and nurse liaison. Will meet with family also if they come in. Requested pt receive roxanol at this time to treat his pain. Tentative plan is for equipment delivery at the home at 11 am and transport home around noon. Will remain available.
--- NOTE | 2018-12-10 10:06 | NUR ---
PT MEDICATED WITH 10MG ROXINOL PO PER [facility]AR. FAMILY AT BEDSIDE (PT GRANDSON)
--- NOTE | 2018-12-10 10:19 | NUR ---
Spiritual care visit conducted. Patient is lying in bed and resting. Patient easily awoke to the sound of his name and reached out to hold my hand. Patient discusses his on-going dilemma of wanting to know for sure that God is real and that He will accept him when he dies. I explain what the Bible says on this subject and then patient's grandson Scott enters patient's room. I then express my desire for them to have time to talk alone and begin to excuse myself from the room. Patient then sqeezes my hand and asks me to pray for him which I gladly do. Patient and Scott thank me for the visit and I leave. I will continue to be available to patient and family.
--- NOTE | 2018-12-10 10:20 | NUR ---
DR DEVLIN TO ROOM FOR EVAL AND TO DISCUSS DC.
[2018-12-10] MEDS ORDERED: ACET325 PO (12:06)
[2018-12-10] MEDS ORDERED: BENADRYL25 MG PO (12:07)
[2018-12-10] MEDS ORDERED: FAMO20 PO (12:08)
[2018-12-10] MEDS ORDERED: HYDPAM25 PO (12:09)
[2018-12-10] MEDS ORDERED: Ativan1 MG PO (12:10)
[2018-12-10] MEDS ORDERED: MORPHINE CONCENTRATE PO (12:13)
[2018-12-10] MEDS ORDERED: ONDA4ODT PO (12:13)
--- NOTE | 2018-12-10 12:23 | NUR ---
PT MEDICATED WITH 10MG MORPHINE PO PRIOR TO DC.
--- NOTE | 2018-12-10 12:32 | NUR ---
PT DC HOME WITH FAMILY. ALL BELONGINGS SENT HOME. RX FAXED TO PHARMACY OF CHOICE. FOLLOWUP INFO ON PAPERWORK. QUESTIONS ADDRESSED.
== END 2018-12-10 12:54 | disposition hospice, home (50) | DRG 405 ==
LOC: ER 10:37 → MEDS 16:58
PROVIDERS: Emergency Medicine; Hospitalist; ADMIT Student in an Organized Health Care Education/Training Program
PROC: 0F7 Hepatobiliary System and Pancreas, Dilation (ICD-10-PCS; principal; 2018-12-04)
PROC: 0F7 Hepatobiliary System and Pancreas, Dilation (ICD-10-PCS; 2018-12-04)
DX: C25.9 Malignant neoplasm of pancreas, unspecified (principal); K72.00 Acute and subacute hepatic failure without coma; I81 Portal vein thrombosis; I50.43 Acute on chronic combined systolic (congestive) and diastolic (congestive) heart failure; K83.1 Obstruction of bile duct; L03.115 Cellulitis of right lower limb; Z66 Do not resuscitate; I48.0 Paroxysmal atrial fibrillation; E87.6 Hypokalemia; I11.0 Hypertensive heart disease with heart failure
CPT/HCPCS: 36415; 47534; 47538; 71045; 74177; 80053; 82140; 83690; 83735; 83880; 84100; 84484; 85025; 85610; 87040; 93005; 93010; 93306; 96361-59; 96374-59; 99152; 99153; 99285-25; C1725; C1769; C1874; C1887; C1894; J0690; J0780; J1170; J1200; J1940; J2250; J2405; J3010; J7030; J7040; J7120; Q0163; Q0177; Q9967